=== PATIENT | female | born 1995 | race Two or more races ===

== ENCOUNTER 2017-01-09 19:27 | Emergency (ER) | payer MEDICAID, OTHER ==
[~2017-01-09] VITALS: Ht 157.5 cm; Wt 82.4 kg
[2017-01-09 19:35] VITALS: BP 139/85
[2017-01-09] MEDS ORDERED: LIDOCAINE 1%, 20ML ONE (19:42)
[2017-01-09] MEDS ORDERED: DIPH,PERTUSS(ACELL),TET VAC/PF 0.5 ML IM-VACC ONE ×2 (19:43→20:00)
[2017-01-09] MEDS ORDERED: LIDOCAINE 1%, 20ML SQ ONE (20:00)
[2017-01-09] MEDS ORDERED: BACITRACIN ZINC OINT 500U/GM, 0.9 GM ONE (21:03)
== END 2017-01-09 21:34 | disposition home or self-care (01) ==
LOC: ED 20:15
DX: S61.411A Laceration without foreign body of right hand, initial encounter (principal); X58.XXXA Exposure to other specified factors, initial encounter; Y93.89 Activity, other specified; Y92.098 Other place in other non-institutional residence as the place of occurrence of the external cause; Y99.8 Other external cause status
CPT/HCPCS: 12042; 90471; 90715